=== PATIENT | female | born 1995 | race Caucasian/White ===

== ENCOUNTER 2018-09-22 20:19 | Emergency (ER) | payer SELFPAY ==
[~2018-09-22] VITALS: Ht 165.1 cm; Wt 74.8 kg
[~2018-09-22 20:19] MED LIST: AMPI250C11 PO; AZIT-21 PO; AZTH250C PO; CEFD300C3 PO; CIPR500T78 PO; FAMO20TA5 PO; HYDR-3730 PO; KETO10TA PO; METR500T PO; NAPR-243 PO; NITR-65 PO; NITR100C3 PO; PHEN-640 PO; SULF1TAB38 PO; TRM50T PO; birth control
--- OUTSIDE RECORDS SUMMARY | 2018-09-22 20:27 | XMS REPORT | Continuity of Care Document ---
Author Author [facility] Address Unknown Phone Unavailable Allergies Active Description Code Type Severity Reaction Onset Reported/Identified Relationship to Patient Clinical Status Yes amoxicillin Drug Allergy 09/30/2009 Yes amoxicillin Drug Allergy N/A N/A 09/30/2009 Yes amoxicillin [id number] Drug Allergy Moderate RASH 11/17/2013 Medications There is no data. Problems Date Dx Coded Attending Type Code Diagnosis Diagnosed By 11/21/2008 V70.3 Sports/school Exam 11/21/2008 V70.3 Sports/school Exam 11/21/2008 V70.3 Sports/school Exam 11/21/2008 V70.3 Sports/school Exam 11/21/2008 LAVELLE SYLVESTER PSYD V70.3 Sports/school Exam 11/21/2008 V70.3 Sports/school Exam 11/21/2008 V70.3 Sports/school Exam 11/21/2008 V70.3 Sports/school Exam 11/21/2008 V70.3 Sports/school Exam 11/21/2008 KYA LEPE DO V70.3 Sports/school Exam 11/21/2008 V70.3 Sports/school Exam 11/21/2008 TIM OLIVO APRNYL A V70.3 Sports/school Exam 11/21/2008 JADYN RENE APRN V70.3 Sports/school Exam 11/21/2008 PALLAVI BINGHAM RENE A V70.3 Sports/school Exam 11/21/2008 PALLAVI BINGHAM RENE A V70.3 Sports/school Exam 11/21/2008 PALLAVI BINGHAM RENE A V70.3 Sports/school Exam 11/21/2008 JOYCE MAYO APRN A V70.3 Sports/school Exam 05/03/2009 079.99 Viral Syndrome 05/03/2009 079.99 Viral Syndrome 05/03/2009 079.99 Viral Syndrome 05/03/2009 079.99 Viral Syndrome 05/03/2009 LAVELLE SYLVESTER PSYD L 079.99 Viral Syndrome 05/03/2009 079.99 Viral Syndrome 05/03/2009 079.99 Viral Syndrome 05/03/2009 079.99 Viral Syndrome 05/03/2009 079.99 Viral Syndrome 05/03/2009 KYA LEPE DO 079.99 Viral Syndrome 05/03/2009 079.99 Viral Syndrome 05/03/2009 PALLAVI TOOL LATHE OPERATOR, RENE A 079.99 Viral Syndrome 05/03/2009 JADYN RENE APRN 079.99 Viral Syndrome 05/03/2009 RAJOTTE TOOL LATHE OPERATOR, RENE A 079.99 Viral Syndrome 05/03/2009 BRIDGETOTTE TOOL LATHE OPERATOR, RENE A 079.99 Viral Syndrome 05/03/2009 RAJOTTE TOOL LATHE OPERATOR, RENE A 079.99 Viral Syndrome 05/03/2009 GAEL TOOL LATHE OPERATOR, JOYCE A 079.99 Viral Syndrome 12/24/2009 493.90 Asthma Unspecified 12/24/2009 625.3 DYSMENORRHEA 12/24/2009 626.4 IRREGULAR MENSTRUAL CYCLE 12/24/2009 V20.2 WELL CHILD, ROUTINE 12/24/2009 493.90 Asthma Unspecified 12/24/2009 625.3 DYSMENORRHEA 12/24/2009 626.4 IRREGULAR MENSTRUAL CYCLE 12/24/2009 V20.2 WELL CHILD, ROUTINE 12/24/2009 493.90 Asthma Unspecified 12/24/2009 625.3 DYSMENORRHEA 12/24/2009 626.4 IRREGULAR MENSTRUAL CYCLE 12/24/2009 V20.2 WELL CHILD, ROUTINE 12/24/2009 493.90 Asthma Unspecified 12/24/2009 625.3 DYSMENORRHEA 12/24/2009 626.4 IRREGULAR MENSTRUAL CYCLE 12/24/2009 V20.2 WELL CHILD, ROUTINE 12/24/2009 LAVELLE SYLVESTER PSYD L 493.90 Asthma Unspecified 12/24/2009 LAVELLE SYLVESTER PSYD L 625.3 DYSMENORRHEA 12/24/2009 LAVELLE SYLVESTER PSYD L 626.4 IRREGULAR MENSTRUAL CYCLE 12/24/2009 LAVELLE SYLVESTER PSYD L V20.2 WELL CHILD, ROUTINE 12/24/2009 493.90 Asthma Unspecified 12/24/2009 625.3 DYSMENORRHEA 12/24/2009 626.4 IRREGULAR MENSTRUAL CYCLE 12/24/2009 V20.2 WELL CHILD, ROUTINE 12/24/2009 493.90 Asthma Unspecified 12/24/2009 625.3 DYSMENORRHEA 12/24/2009 626.4 IRREGULAR MENSTRUAL CYCLE 12/24/2009 V20.2 WELL CHILD, ROUTINE 12/24/2009 493.90 Asthma Unspecified 12/24/2009 625.3 DYSMENORRHEA 12/24/2009 626.4 IRREGULAR MENSTRUAL CYCLE 12/24/2009 V20.2 WELL CHILD, ROUTINE 12/24/2009 493.90 Asthma Unspecified 12/24/2009 625.3 DYSMENORRHEA 12/24/2009 626.4 IRREGULAR MENSTRUAL CYCLE 12/24/2009 V20.2 WELL CHILD, ROUTINE 12/24/2009 LEPE DO, YKA K 493.90 Asthma Unspecified 12/24/2009 LEPE DO, KYA K 625.3 DYSMENORRHEA 12/24/2009 LEPE DO KYA K 626.4 IRREGULAR MENSTRUAL CYCLE 12/24/2009 LEPE DO, KYA K V20.2 WELL CHILD, ROUTINE 12/24/2009 493.90 Asthma Unspecified 12/24/2009 625.3 DYSMENORRHEA 12/24/2009 626.4 IRREGULAR MENSTRUAL CYCLE 12/24/2009 V20.2 WELL CHILD, ROUTINE 12/24/2009 RAJWAGNERE TOOL LATHE OPERATOR, RENE A 493.90 Asthma Unspecified 12/24/2009 RAJWAGNERE TOOL LATHE OPERATOR, RENE A 625.3 DYSMENORRHEA 12/24/2009 RAJWAGNERE TOOL LATHE OPERATOR, RENE A 626.4 IRREGULAR MENSTRUAL CYCLE 12/24/2009 RAJWAGNERE TOOL LATHE OPERATOR, RENE A V20.2 WELL CHILD, ROUTINE 12/24/2009 JADYN RENE APRN 493.90 Asthma Unspecified 12/24/2009 JADYN RENE APRN 625.3 DYSMENORRHEA 12/24/2009 JADYN RENE APRN 626.4 IRREGULAR MENSTRUAL CYCLE 12/24/2009 JADYN RENE APRN V20.2 WELL CHILD, ROUTINE 12/24/2009 RAJOTTE TOOL LATHE OPERATOR, RENE A 493.90 Asthma Unspecified 12/24/2009 RAJWAGNERE ZACHERY, RENE A 625.3 DYSMENORRHEA 12/24/2009 RAJOTTE TOOL LATHE OPERATOR, RENE A 626.4 IRREGULAR MENSTRUAL CYCLE 12/24/2009 RAJOTTE TOOL LATHE OPERATOR, RENE A V20.2 WELL CHILD, ROUTINE 12/24/2009 RAJOTTE TOOL LATHE OPERATOR, RENE A 493.90 Asthma Unspecified 12/24/2009 RAJOTTE TOOL LATHE OPERATOR, RENE A 625.3 DYSMENORRHEA 12/24/2009 RAJOTTE TOOL LATHE OPERATOR, RENE A 626.4 IRREGULAR MENSTRUAL CYCLE 12/24/2009 RAJOTTE TOOL LATHE OPERATOR, RENE A V20.2 WELL CHILD, ROUTINE 12/24/2009 RAJOTTE TOOL LATHE OPERATOR, RENE A 493.90 Asthma Unspecified 12/24/2009 RAJOTTE TOOL LATHE OPERATOR, RENE A 625.3 DYSMENORRHEA 12/24/2009 RAJOTTE TOOL LATHE OPERATOR, RENE A 626.4 IRREGULAR MENSTRUAL CYCLE 12/24/2009 RAJOTTE TOOL LATHE OPERATOR, RENE A V20.2 WELL CHILD, ROUTINE 12/24/2009 GAEL TOOL LATHE OPERATOR, JOYCE A 493.90 Asthma Unspecified 12/24/2009 GAEL TOOL LATHE OPERATOR, JOYCE A 625.3 DYSMENORRHEA 12/24/2009 GAEL TOOL LATHE OPERATOR, JOYCE A 626.4 IRREGULAR MENSTRUAL CYCLE 12/24/2009 GAEL TOOL LATHE OPERATOR, JOYCE A V20.2 WELL CHILD, ROUTINE 05/26/2010 477.0 ALLERGIC RHINITIS, DUE TO POLLEN 05/26/2010 477.0 ALLERGIC RHINITIS, DUE TO POLLEN 05/26/2010 477.0 ALLERGIC RHINITIS, DUE TO POLLEN 05/26/2010 477.0 ALLERGIC RHINITIS, DUE TO POLLEN 05/26/2010 LAVELLE SYLVESTER PSYD 477.0 ALLERGIC RHINITIS, DUE TO POLLEN 05/26/2010 477.0 ALLERGIC RHINITIS, DUE TO POLLEN 05/26/2010 477.0 ALLERGIC RHINITIS, DUE TO POLLEN 05/26/2010 477.0 ALLERGIC RHINITIS, DUE TO POLLEN 05/26/2010 477.0 ALLERGIC RHINITIS, DUE TO POLLEN 05/26/2010 KYA LEPE DO 477.0 ALLERGIC RHINITIS, DUE TO POLLEN 05/26/2010 477.0 ALLERGIC RHINITIS, DUE TO POLLEN 05/26/2010 RAJOTTE TOOL LATHE OPERATOR, RENE A 477.0 ALLERGIC RHINITIS, DUE TO POLLEN 05/26/2010 JADYN RENE APRN 477.0 ALLERGIC RHINITIS, DUE TO POLLEN 05/26/2010 RAJOTTE TOOL LATHE OPERATOR, RENE A 477.0 ALLERGIC RHINITIS, DUE TO POLLEN 05/26/2010 RAJOTTE TOOL LATHE OPERATOR, RENE A 477.0 ALLERGIC RHINITIS, DUE TO POLLEN 05/26/2010 RAJOTTE TOOL LATHE OPERATOR, RENE A 477.0 ALLERGIC RHINITIS, DUE TO POLLEN 05/26/2010 GAEL TOOL LATHE OPERATOR, JOYCE A 477.0 ALLERGIC RHINITIS, DUE TO POLLEN 10/27/2010 462 Pharyngitis Acute 10/27/2010 462 Pharyngitis Acute 10/27/2010 462 Pharyngitis Acute 10/27/2010 462 Pharyngitis Acute 10/27/2010 LAVELLE SYLVESTER PSYD 462 Pharyngitis Acute 10/27/2010 462 Pharyngitis Acute 10/27/2010 462 Pharyngitis Acute 10/27/2010 462 Pharyngitis Acute 10/27/2010 462 Pharyngitis Acute 10/27/2010 KYA LEPE DO 462 Pharyngitis Acute 10/27/2010 462 Pharyngitis Acute 10/27/2010 RAJOTTE TOOL LATHE OPERATOR, RENE A 462 Pharyngitis Acute 10/27/2010 JADYN RENE APRN 462 Pharyngitis Acute 10/27/2010 RAJOTTE TOOL LATHE OPERATOR, RENE A 462 Pharyngitis Acute 10/27/2010 RAJOTTE TOOL LATHE OPERATOR, RENE A 462 Pharyngitis Acute 10/27/2010 RAJOTTE TOOL LATHE OPERATOR, RENE A 462 Pharyngitis Acute 10/27/2010 GAEL TOOL LATHE OPERATOR, JOYCE A 462 Pharyngitis Acute 12/30/2010 V05.3 Hepatitis A Vaccine 12/30/2010 V05.8 Gardasil 12/30/2010 V05.3 Hepatitis A Vaccine 12/30/2010 V05.8 Gardasil 12/30/2010 V05.3 Hepatitis A Vaccine 12/30/2010 V05.8 Gardasil 12/30/2010 V05.3 Hepatitis A Vaccine 12/30/2010 V05.8 Gardasil 12/30/2010 LAVELLE SYLVESTER PSYD V05.3 Hepatitis A Vaccine 12/30/2010 LAVELLE SYLVESTER PSYD L V05.8 Gardasil 12/30/2010 V05.3 Hepatitis A Vaccine 12/30/2010 V05.8 Gardasil 12/30/2010 V05.3 Hepatitis A Vaccine 12/30/2010 V05.8 Gardasil 12/30/2010 V05.3 Hepatitis A Vaccine 12/30/2010 V05.8 Gardasil 12/30/2010 V05.3 Hepatitis A Vaccine 12/30/2010 V05.8 Gardasil 12/30/2010 LEPE DO, KYA K V05.3 Hepatitis A Vaccine 12/30/2010 LEPE DO, KYA K V05.8 Gardasil 12/30/2010 V05.3 Hepatitis A Vaccine 12/30/2010 V05.8 Gardasil 12/30/2010 TIM OLIVO APRNYL A V05.3 Hepatitis A Vaccine 12/30/2010 PALLAVI BINGHAM RENE A V05.8 Gardasil 12/30/2010 JADYN RENE APRN V05.3 Hepatitis A Vaccine 12/30/2010 JADYN RNEE APRN V05.8 Gardasil 12/30/2010 PALLAVI BINGHAM RENE A V05.3 Hepatitis A Vaccine 12/30/2010 PALLAVI BINGHAM RENE A V05.8 Gardasil 12/30/2010 PALLAVI BINGHAM RENE A V05.3 Hepatitis A Vaccine 12/30/2010 PALLAVI BINGHAM RENE A V05.8 Gardasil 12/30/2010 PALLAVI BINGHAM RENE A V05.3 Hepatitis A Vaccine 12/30/2010 PALLAVI BINGHAM RENE A V05.8 Gardasil 12/30/2010 GAEL BINGHAM JOYCE A V05.3 Hepatitis A Vaccine 12/30/2010 GAEL BINGHAM JOYCE A V05.8 Gardasil 01/15/2011 463 Tonsillitis Acute 01/15/2011 463 Tonsillitis Acute 01/15/2011 463 Tonsillitis Acute 01/15/2011 463 Tonsillitis Acute 01/15/2011 LAVELLE SYLVESTER PSYD L 463 Tonsillitis Acute 01/15/2011 463 Tonsillitis Acute 01/15/2011 463 Tonsillitis Acute 01/15/2011 463 Tonsillitis Acute 01/15/2011 463 Tonsillitis Acute 01/15/2011 KYA LEPE DO 463 Tonsillitis Acute 01/15/2011 463 Tonsillitis Acute 01/15/2011 TIM OLIVO APRNYL A 463 Tonsillitis Acute 01/15/2011 JADYN RENE APRN 463 Tonsillitis Acute 01/15/2011 TIM OLIVO APRNYL A 463 Tonsillitis Acute 01/15/2011 TIM OLIVO APRNYL A 463 Tonsillitis Acute 01/15/2011 TIM OLIVO APRNYL A 463 Tonsillitis Acute 01/15/2011 JOYCE MAYO APRN A 463 Tonsillitis Acute 01/21/2011 V25.01 CONTRACEPTION COUNSELING- ORAL CONTRACEPTION 01/21/2011 V25.01 CONTRACEPTION COUNSELING- ORAL CONTRACEPTION 01/21/2011 V25.01 CONTRACEPTION COUNSELING- ORAL CONTRACEPTION 01/21/2011 V25.01 CONTRACEPTION COUNSELING- ORAL CONTRACEPTION 01/21/2011 LAVELLE SYLVESTER PSYD V25.01 CONTRACEPTION COUNSELING- ORAL CONTRACEPTION 01/21/2011 V25.01 CONTRACEPTION COUNSELING- ORAL CONTRACEPTION 01/21/2011 V25.01 CONTRACEPTION COUNSELING- ORAL CONTRACEPTION 01/21/2011 V25.01 CONTRACEPTION COUNSELING- ORAL CONTRACEPTION 01/21/2011 V25.01 CONTRACEPTION COUNSELING- ORAL CONTRACEPTION 01/21/2011 KYA LEPE DO V25.01 CONTRACEPTION COUNSELING- ORAL CONTRACEPTION 01/21/2011 V25.01 CONTRACEPTION COUNSELING- ORAL CONTRACEPTION 01/21/2011 RENE OLIVO APRN A V25.01 CONTRACEPTION COUNSELING- ORAL CONTRACEPTION 01/21/2011 AJDYN RENE APRN V25.01 CONTRACEPTION COUNSELING- ORAL CONTRACEPTION 01/21/2011 RENE OLIVO APRN A V25.01 CONTRACEPTION COUNSELING- ORAL CONTRACEPTION 01/21/2011 RENE OLIVO APRN A V25.01 CONTRACEPTION COUNSELING- ORAL CONTRACEPTION 01/21/2011 TIM OLIVO APRNYL A V25.01 CONTRACEPTION COUNSELING- ORAL CONTRACEPTION 01/21/2011 JOYCE MAYO APRN V25.01 CONTRACEPTION COUNSELING- ORAL CONTRACEPTION 05/26/2011 787.02 Nausea Alone 05/26/2011 787.02 Nausea Alone 05/26/2011 787.02 Nausea Alone 05/26/2011 787.02 Nausea Alone 05/26/2011 LAVELLE SYLVESTER PSYD L 787.02 Nausea Alone 05/26/2011 787.02 Nausea Alone 05/26/2011 787.02 Nausea Alone 05/26/2011 787.02 Nausea Alone 05/26/2011 787.02 Nausea Alone 05/26/2011 SHERLEY CANALESKYA K 787.02 Nausea Alone 05/26/2011 787.02 Nausea Alone 05/26/2011 PALLAVI BINGHAM RENE A 787.02 Nausea Alone 05/26/2011 JADYN RENE APRN 787.02 Nausea Alone 05/26/2011 PALLAVI TOOL LATHE OPERATOR, RENE A 787.02 Nausea Alone 05/26/2011 PALLAVI TOOL LATHE OPERATOR, RENE A 787.02 Nausea Alone 05/26/2011 PALLAVI TOOL LATHE OPERATOR, RENE A 787.02 Nausea Alone 05/26/2011 GAEL BINGHAM JOYCE A 787.02 Nausea Alone 09/16/2011 757.39 Keratosis Pilaris 09/16/2011 786.52 Anterior Wall Chest Pain With Respiration 09/16/2011 757.39 Keratosis Pilaris 09/16/2011 786.52 Anterior Wall Chest Pain With Respiration 09/16/2011 757.39 Keratosis Pilaris 09/16/2011 786.52 Anterior Wall Chest Pain With Respiration 09/16/2011 757.39 Keratosis Pilaris 09/16/2011 786.52 Anterior Wall Chest Pain With Respiration 09/16/2011 LAVELLE SYLVESTER PSYD L 757.39 Keratosis Pilaris 09/16/2011 LAVELLE SYLVESTER PSYD L 786.52 Anterior Wall Chest Pain With Respiration 09/16/2011 757.39 Keratosis Pilaris 09/16/2011 786.52 Anterior Wall Chest Pain With Respiration 09/16/2011 757.39 Keratosis Pilaris 09/16/2011 786.52 Anterior Wall Chest Pain With Respiration 09/16/2011 757.39 Keratosis Pilaris 09/16/2011 786.52 Anterior Wall Chest Pain With Respiration 09/16/2011 757.39 Keratosis Pilaris 09/16/2011 786.52 Anterior Wall Chest Pain With Respiration 09/16/2011 KYA LEPE DO K 757.39 Keratosis Pilaris 09/16/2011 KYA LEPE DO K 786.52 Anterior Wall Chest Pain With Respiration 09/16/2011 757.39 Keratosis Pilaris 09/16/2011 786.52 Anterior Wall Chest Pain With Respiration 09/16/2011 RAJOTTE TOOL LATHE OPERATOR, RENE A 757.39 Keratosis Pilaris 09/16/2011 RAJOTTE TOOL LATHE OPERATOR, RENE A 786.52 Anterior Wall Chest Pain With Respiration 09/16/2011 ANJU MONTAGUEN JADYN T 757.39 Keratosis Pilaris 09/16/2011 ANJU TOOL LATHE OPERATOR, JADYN T 786.52 Anterior Wall Chest Pain With Respiration 09/16/2011 RAJOTTE TOOL LATHE OPERATOR, RENE A 757.39 Keratosis Pilaris 09/16/2011 RAJOTTE TOOL LATHE OPERATOR, RENE A 786.52 Anterior Wall Chest Pain With Respiration 09/16/2011 RAJOTTE TOOL LATHE OPERATOR, RENE A 757.39 Keratosis Pilaris 09/16/2011 RAJOTTE TOOL LATHE OPERATOR, RENE A 786.52 Anterior Wall Chest Pain With Respiration 09/16/2011 RAJOTTE TOOL LATHE OPERATOR, RENE A 757.39 Keratosis Pilaris 09/16/2011 RAJOTTE TOOL LATHE OPERATOR, RENE A 786.52 Anterior Wall Chest Pain With Respiration 09/16/2011 GAEL TOOL LATHE OPERATOR, JOYCE A 757.39 Keratosis Pilaris 09/16/2011 GAEL TOOL LATHE OPERATOR, JOYCE A 786.52 Anterior Wall Chest Pain With Respiration 12/07/2011 V04.89 Gardasil (hpv ) Dx 12/07/2011 V05.4 Varicella Dx 12/07/2011 V04.89 Gardasil (hpv ) Dx 12/07/2011 V05.4 Varicella Dx 12/07/2011 V04.89 Gardasil (hpv ) Dx 12/07/2011 V05.4 Varicella Dx 12/07/2011 V04.89 Gardasil (hpv ) Dx 12/07/2011 V05.4 Varicella Dx 12/07/2011 LAVELLE SYLVESTER PSYD V04.89 Gardasil (hpv) Dx 12/07/2011 LAVELLE SYLVESTER PSYD V05.4 Varicella Dx 12/07/2011 V04.89 Gardasil (hpv ) Dx 12/07/2011 V05.4 Varicella Dx 12/07/2011 V04.89 Gardasil (hpv ) Dx 12/07/2011 V05.4 Varicella Dx 12/07/2011 V04.89 Gardasil (hpv ) Dx 12/07/2011 V05.4 Varicella Dx 12/07/2011 V04.89 Gardasil (hpv ) Dx 12/07/2011 V05.4 Varicella Dx 12/07/2011 KYA LEPE DO V04.89 Gardasil (hpv) Dx 12/07/2011 LEPE DOKYA V05.4 Varicella Dx 12/07/2011 V04.89 Gardasil (hpv ) Dx 12/07/2011 V05.4 Varicella Dx 12/07/2011 RENE OLIVO APRN A V04.89 Gardasil (hpv) Dx 12/07/2011 RENE OLIVO APRN A V05.4 Varicella Dx 12/07/2011 JADYN RENE APRN V04.89 Gardasil (hpv) Dx 12/07/2011 JADYN RENE APRN V05.4 Varicella Dx 12/07/2011 RENE OLIVO APRN A V04.89 Gardasil (hpv) Dx 12/07/2011 TIM OLIVO APRNYL A V05.4 Varicella Dx 12/07/2011 TIM OLIVO APRNYL A V04.89 Gardasil (hpv) Dx 12/07/2011 TIM OLIVO APRNYL A V05.4 Varicella Dx 12/07/2011 RENE OLIVO APRN A V04.89 Gardasil (hpv) Dx 12/07/2011 RENE OLIVO APRN A V05.4 Varicella Dx 12/07/2011 JOYCE MAYO APRN V04.89 Gardasil (hpv) Dx 12/07/2011 JOYCE MAYO APRN A V05.4 Varicella Dx 01/11/2012 Ot 719.41 01/11/2012 Ot 840.8 01/11/2012 Ot E000.8 01/11/2012 Ot E029.9 01/11/2012 Ot E849.4 01/11/2012 Ot E927.0 01/21/2012 V25.02 Contraceptives 01/21/2012 V25.02 Contraceptives 01/21/2012 V25.02 Contraceptives 01/21/2012 V25.02 Contraceptives 01/21/2012 LAVELLE SYLVESTER PSYD V25.02 Contraceptives 01/21/2012 V25.02 Contraceptives 01/21/2012 V25.02 Contraceptives 01/21/2012 V25.02 Contraceptives 01/21/2012 V25.02 Contraceptives 01/21/2012 KYA LEPE DO V25.02 Contraceptives 01/21/2012 V25.02 Contraceptives 01/21/2012 PALLAVI BINGHAM RENE A V25.02 Contraceptives 01/21/2012 JADYN RENE APRN V25.02 Contraceptives 01/21/2012 PALLAVI BINGHAM RENE A V25.02 Contraceptives 01/21/2012 PALLAVI BINGHAM RENE A V25.02 Contraceptives 01/21/2012 PALLAVI BINGHAM RENE A V25.02 Contraceptives 01/21/2012 JOYCE MAYO APRN A V25.02 Contraceptives 2012 311 DEPRESSIVE DISORDER NOS 2012 311 DEPRESSIVE DISORDER NOS 2012 311 DEPRESSIVE DISORDER NOS 2012 311 DEPRESSIVE DISORDER NOS 2012 LAVELLE SYLVESTER PSYD 311 DEPRESSIVE DISORDER NOS 2012 311 DEPRESSIVE DISORDER NOS 2012 311 DEPRESSIVE DISORDER NOS 2012 311 DEPRESSIVE DISORDER NOS 2012 311 DEPRESSIVE DISORDER NOS 2012 KYA LEPE DO 311 DEPRESSIVE DISORDER NOS 2012 311 DEPRESSIVE DISORDER NOS 2012 PALLAVI BINGHAM RENE A 311 DEPRESSIVE DISORDER NOS 2012 JADYN RENE APRN 311 DEPRESSIVE DISORDER NOS 2012 PALLAVI BINGHAM RENE A 311 DEPRESSIVE DISORDER NOS 2012 PALLAVI BINGHAM RENE A 311 DEPRESSIVE DISORDER NOS 2012 PALLAVI BINGHAM RENE A 311 DEPRESSIVE DISORDER NOS 2012 JOYCE MAYO APRN A 311 DEPRESSIVE DISORDER NOS 06/21/2012 296.32 MO DEPRESSIVE RECURRENT MODERATE 06/21/2012 301.4 PD OBSESSIVE- COMPULSIVE 06/21/2012 296.32 MO DEPRESSIVE RECURRENT MODERATE 06/21/2012 301.4 PD OBSESSIVE- COMPULSIVE 06/21/2012 296.32 MO DEPRESSIVE RECURRENT MODERATE 06/21/2012 301.4 PD OBSESSIVE- COMPULSIVE 06/21/2012 296.32 MO DEPRESSIVE RECURRENT MODERATE 06/21/2012 301.4 PD OBSESSIVE- COMPULSIVE 06/21/2012 LAVELLE SYLVESTER PSYD 296.32 MO DEPRESSIVE RECURRENT MODERATE 06/21/2012 LAVELLE SYLVESTER PSYD 301.4 PD OBSESSIVE-COMPULSIVE 06/21/2012 296.32 MO DEPRESSIVE RECURRENT MODERATE 06/21/2012 301.4 PD OBSESSIVE- COMPULSIVE 06/21/2012 296.32 MO DEPRESSIVE RECURRENT MODERATE 06/21/2012 301.4 PD OBSESSIVE- COMPULSIVE 06/21/2012 296.32 MO DEPRESSIVE RECURRENT MODERATE 06/21/2012 301.4 PD OBSESSIVE- COMPULSIVE 06/21/2012 296.32 MO DEPRESSIVE RECURRENT MODERATE 06/21/2012 301.4 PD OBSESSIVE- COMPULSIVE 06/21/2012 LEPE DO, KYA K 296.32 MO DEPRESSIVE RECURRENT MODERATE 06/21/2012 LEPE DO, KYA K 301.4 PD OBSESSIVE-COMPULSIVE 06/21/2012 296.32 MO DEPRESSIVE RECURRENT MODERATE 06/21/2012 301.4 PD OBSESSIVE- COMPULSIVE 06/21/2012 AMANDAE TOOL LATHE OPERATOR, RENE A 296.32 MO DEPRESSIVE RECURRENT MODERATE 06/21/2012 RAJWAGNERE TOOL LATHE OPERATOR, RENE A 301.4 PD OBSESSIVE-COMPULSIVE 06/21/2012 JDAYN RENE APRN 296.32 MO DEPRESSIVE RECURRENT MODERATE 06/21/2012 JADYN RENE APRN 301.4 PD OBSESSIVE-COMPULSIVE 06/21/2012 RAJWAGNERE TOOL LATHE OPERATOR, RENE A 296.32 MO DEPRESSIVE RECURRENT MODERATE 06/21/2012 RAJWAGNERE TOOL LATHE OPERATOR, RENE A 301.4 PD OBSESSIVE-COMPULSIVE 06/21/2012 RAJOTTE TOOL LATHE OPERATOR, RENE A 296.32 MO DEPRESSIVE RECURRENT MODERATE 06/21/2012 RAJOTTE TOOL LATHE OPERATOR, RENE A 301.4 PD OBSESSIVE-COMPULSIVE 06/21/2012 RAJOTTE TOOL LATHE OPERATOR, RENE A 296.32 MO DEPRESSIVE RECURRENT MODERATE 06/21/2012 RAJWAGNERE TOOL LATHE OPERATOR, RENE A 301.4 PD OBSESSIVE-COMPULSIVE 06/21/2012 GAEL BINGHAM JOYCE A 296.32 MO DEPRESSIVE RECURRENT MODERATE 06/21/2012 GAEL BINGHAM JOYCE A 301.4 PD OBSESSIVE-COMPULSIVE 08/09/2012 V69.2 HIGH-RISK SEXUAL BEHAVIOR 08/09/2012 V69.2 HIGH-RISK SEXUAL BEHAVIOR 08/09/2012 V69.2 HIGH-RISK SEXUAL BEHAVIOR 08/09/2012 V69.2 HIGH-RISK SEXUAL BEHAVIOR 08/09/2012 LAVELLE SYLVESTER PSYD V69.2 HIGH-RISK SEXUAL BEHAVIOR 08/09/2012 V69.2 HIGH-RISK SEXUAL BEHAVIOR 08/09/2012 V69.2 HIGH-RISK SEXUAL BEHAVIOR 08/09/2012 V69.2 HIGH-RISK SEXUAL BEHAVIOR 08/09/2012 V69.2 HIGH-RISK SEXUAL BEHAVIOR 08/09/2012 SHERLEY CANALES KYA Yolis V69.2 HIGH-RISK SEXUAL BEHAVIOR 08/09/2012 V69.2 HIGH-RISK SEXUAL BEHAVIOR 08/09/2012 PALLAVI BINGHAM RENE A V69.2 HIGH-RISK SEXUAL BEHAVIOR 08/09/2012 JADYN RENE APRN V69.2 HIGH-RISK SEXUAL BEHAVIOR 08/09/2012 RAJMARCELINA TOOL LATHE OPERATOR, RENE A V69.2 HIGH-RISK SEXUAL BEHAVIOR 08/09/2012 PALLAVI BINGHAM, RENE A V69.2 HIGH-RISK SEXUAL BEHAVIOR 08/09/2012 PALLAVI TOOL LATHE OPERATOR, RENE A V69.2 HIGH-RISK SEXUAL BEHAVIOR 08/09/2012 GAEL BINGHAM JOYCE A V69.2 HIGH-RISK SEXUAL BEHAVIOR 09/09/2012 Ot 599.0 09/09/2012 Ot 780.60 10/04/2012 786.2 cough 10/04/2012 786.2 cough 10/04/2012 LAVELLE SYLVESTER PSYD 786.2 cough 10/04/2012 786.2 cough 10/04/2012 786.2 cough 10/04/2012 786.2 cough 10/04/2012 786.2 cough 10/04/2012 786.2 cough 10/04/2012 PALLAVI BINGHAM, RENE A 786.2 cough 10/04/2012 JADYN RENE APRN 786.2 cough 10/04/2012 RAJMARCELINA BINGHAM, RENE A 786.2 cough 10/04/2012 PALLAVI TOOL LATHE OPERATOR, RENE A 786.2 cough 10/04/2012 RAJWAGNERE TOOL LATHE OPERATOR, RENE A 786.2 cough 10/04/2012 GAELWALT BINGHAM, JOYCE A 786.2 COUGH 11/25/2012 LAVELLE SYLVESTER PSYD ANN L 788.1 DYSURIA 11/25/2012 LAVELLE SYLVESTER PSYD ANN L 788.41 URINARY FREQUENCY 11/25/2012 788.1 DYSURIA 11/25/2012 788.41 URINARY FREQUENCY 11/25/2012 788.1 DYSURIA 11/25/2012 788.41 URINARY FREQUENCY 11/25/2012 788.1 DYSURIA 11/25/2012 788.41 URINARY FREQUENCY 11/25/2012 788.1 DYSURIA 11/25/2012 788.41 URINARY FREQUENCY 11/25/2012 788.1 DYSURIA 11/25/2012 788.41 URINARY FREQUENCY 11/25/2012 AMANDAE TOOL LATHE OPERATOR, RENE A 788.1 DYSURIA 11/25/2012 PALLAVI BINGHAM, RENE A 788.41 URINARY FREQUENCY 11/25/2012 JADYN RENE APRN 788.1 DYSURIA 11/25/2012 JADYN RENE APRN 788.41 URINARY FREQUENCY 11/25/2012 AMANDAE TOOL LATHE OPERATOR, RENE A 788.1 DYSURIA 11/25/2012 RAJWAGNERE TOOL LATHE OPERATOR, RENE A 788.41 URINARY FREQUENCY 11/25/2012 RAJOTTE TOOL LATHE OPERATOR, RENE A 788.1 DYSURIA 11/25/2012 RAJOTTE TOOL LATHE OPERATOR, RENE A 788.41 URINARY FREQUENCY 11/25/2012 RAJOTTE TOOL LATHE OPERATOR, RENE A 788.1 DYSURIA 11/25/2012 RAJWAGNERE TOOL LATHE OPERATOR, RENE A 788.41 URINARY FREQUENCY 11/25/2012 GAEL APRN, JOYCE A 788.1 DYSURIA 11/25/2012 GAEL TOOL LATHE OPERATOR, JOYCE A 788.41 URINARY FREQUENCY 12/07/2012 V04.89 GARDASIL (HPV ) DX 12/07/2012 V04.89 GARDASIL (HPV ) DX 12/07/2012 V04.89 GARDASIL (HPV ) DX 12/07/2012 V04.89 GARDASIL (HPV ) DX 12/07/2012 V04.89 GARDASIL (HPV ) DX 12/07/2012 TIM OLIVO APRNYL A V04.89 GARDASIL (HPV) DX 12/07/2012 JADYN RENE APRN V04.89 GARDASIL (HPV) DX 12/07/2012 PALLAVI BINGHAM, RENE A V04.89 GARDASIL (HPV) DX 12/07/2012 AMANDAE TOOL LATHE OPERATOR, RENE A V04.89 GARDASIL (HPV) DX 12/07/2012 BRIDGETWAGNERE TOOL LATHE OPERATOR, RENE A V04.89 GARDASIL (HPV) DX 12/07/2012 GAEL BINGHAM, JOYCE A V04.89 GARDASIL (HPV) DX 12/10/2012 782.1 RASH AND OTHER NONSPECIFIC SKIN ERUPTION 12/10/2012 V70.0 EXAM - ROUTINE H&P 12/10/2012 782.1 RASH AND OTHER NONSPECIFIC SKIN ERUPTION 12/10/2012 V70.0 EXAM - ROUTINE H&P 12/10/2012 782.1 RASH AND OTHER NONSPECIFIC SKIN ERUPTION 12/10/2012 V70.0 EXAM - ROUTINE H&P 12/10/2012 782.1 RASH AND OTHER NONSPECIFIC SKIN ERUPTION 12/10/2012 V70.0 EXAM - ROUTINE H&P 12/10/2012 PALLAVI BINGHAM RENE A 782.1 RASH AND OTHER NONSPECIFIC SKIN ERUPTION 12/10/2012 PALLAVI BINGHAM, RENE A V70.0 EXAM - ROUTINE H&P 12/10/2012 JADYN RENE APRN 782.1 RASH AND OTHER NONSPECIFIC SKIN ERUPTION 12/10/2012 JADYN RENE APRN V70.0 EXAM - ROUTINE H&P 12/10/2012 PALLAVI TOOL LATHE OPERATOR, RENE A 782.1 RASH AND OTHER NONSPECIFIC SKIN ERUPTION 12/10/2012 PALLAVI BINGHAM, RENE A V70.0 EXAM - ROUTINE H&P 12/10/2012 PALLAVI TOOL LATHE OPERATOR, RENE A 782.1 RASH AND OTHER NONSPECIFIC SKIN ERUPTION 12/10/2012 AMANDAE TOOL LATHE OPERATOR, RENE A V70.0 EXAM - ROUTINE H&P 12/10/2012 PALLAVI TOOL LATHE OPERATOR, RENE A 782.1 RASH AND OTHER NONSPECIFIC SKIN ERUPTION 12/10/2012 PALLAVI TOOL LATHE OPERATOR, RENE A V70.0 EXAM - ROUTINE H&P 12/10/2012 GAEL BINGHAM JOYCE A 782.1 RASH AND OTHER NONSPECIFIC SKIN ERUPTION 12/10/2012 GAEL BINGHAM JOYCE A V70.0 EXAM - ROUTINE H&P 01/03/2013 SHANIA CARVAJAL Ot 599.0 01/03/2013 SHANIA CARVAJAL Ot 616.0 01/03/2013 SHANIA CARVAJAL Ot 789.00 01/16/2013 V13.02 PERSONAL HISTORY OF URINARY (TRACT) INFECTION 01/16/2013 V13.02 PERSONAL HISTORY OF URINARY (TRACT) INFECTION 01/16/2013 V13.02 PERSONAL HISTORY OF URINARY (TRACT) INFECTION 01/16/2013 RAJWAGNERE ZACHERY RENE A V13.02 PERSONAL HISTORY OF URINARY (TRACT) INFECTION 01/16/2013 JADYN RENE APRN V13.02 PERSONAL HISTORY OF URINARY (TRACT) INFECTION 01/16/2013 RAJWAGNERE TOOL LATHE OPERATOR, RENE A V13.02 PERSONAL HISTORY OF URINARY (TRACT) INFECTION 01/16/2013 RAJWAGNERE TOOL LATHE OPERATOR, RENE A V13.02 PERSONAL HISTORY OF URINARY (TRACT) INFECTION 01/16/2013 RAJWAGNERE TOOL LATHE OPERATOR, RENE A V13.02 PERSONAL HISTORY OF URINARY (TRACT) INFECTION 01/16/2013 GAEL BINGHAM JOYCE A V13.02 PERSONAL HISTORY OF URINARY (TRACT) INFECTION 02/17/2013 789.09 ABDOMINAL PAIN OTHER SPECIFIED SITE 02/17/2013 V74.5 STD SCREEN 02/17/2013 789.09 ABDOMINAL PAIN OTHER SPECIFIED SITE 02/17/2013 V74.5 STD SCREEN 02/17/2013 RAJOTTE TOOL LATHE OPERATOR, RENE A 789.09 ABDOMINAL PAIN OTHER SPECIFIED SITE 02/17/2013 RAJWAGNERE TOOL LATHE OPERATOR, RENE A V74.5 STD SCREEN 02/17/2013 JADYN RENE APRN 789.09 ABDOMINAL PAIN OTHER SPECIFIED SITE 02/17/2013 JADYN RENE APRN V74.5 STD SCREEN 02/17/2013 RAJOTTE TOOL LATHE OPERATOR, RENE A 789.09 ABDOMINAL PAIN OTHER SPECIFIED SITE 02/17/2013 RAJOTTE TOOL LATHE OPERATOR, RENE A V74.5 STD SCREEN 02/17/2013 RAJOTTE TOOL LATHE OPERATOR, RENE A 789.09 ABDOMINAL PAIN OTHER SPECIFIED SITE 02/17/2013 RAJOTTE TOOL LATHE OPERATOR, RENE A V74.5 STD SCREEN 02/17/2013 RAJOTTE TOOL LATHE OPERATOR, RENE A 789.09 ABDOMINAL PAIN OTHER SPECIFIED SITE 02/17/2013 RAJOTTE TOOL LATHE OPERATOR, RENE A V74.5 STD SCREEN 02/17/2013 GAEL TOOL LATHE OPERATOR, JOYCE A 789.09 ABDOMINAL PAIN OTHER SPECIFIED SITE 02/17/2013 GAEL TOOL LATHE OPERATOR, JOYCE A V74.5 STD SCREEN 03/28/2013 269.3 MINERAL DEFICIENCY NOT ELSEWHERE CLASSIFIED 03/28/2013 V03.89 MENINGOCOCCAL DX 03/28/2013 RAJOTTE TOOL LATHE OPERATOR, RENE A 269.3 MINERAL DEFICIENCY NOT ELSEWHERE CLASSIFIED 03/28/2013 RAJOTTE TOOL LATHE OPERATOR, RENE A V03.89 MENINGOCOCCAL DX 03/28/2013 JADYN RENE APRN 269.3 MINERAL DEFICIENCY NOT ELSEWHERE CLASSIFIED 03/28/2013 JADYN RENE APRN V03.89 MENINGOCOCCAL DX 03/28/2013 RAJOTTE TOOL LATHE OPERATOR, RENE A 269.3 MINERAL DEFICIENCY NOT ELSEWHERE CLASSIFIED 03/28/2013 RAJOTTE TOOL LATHE OPERATOR, RENE A V03.89 MENINGOCOCCAL DX 03/28/2013 RAJOTTE TOOL LATHE OPERATOR, RENE A 269.3 MINERAL DEFICIENCY NOT ELSEWHERE CLASSIFIED 03/28/2013 RAJOTTE TOOL LATHE OPERATOR, RENE A V03.89 MENINGOCOCCAL DX 03/28/2013 RAJOTTE TOOL LATHE OPERATOR, RENE A 269.3 MINERAL DEFICIENCY NOT ELSEWHERE CLASSIFIED 03/28/2013 RAJOTTE TOOL LATHE OPERATOR, RENE A V03.89 MENINGOCOCCAL DX 03/28/2013 GAEL TOOL LATHE OPERATOR, JOYCE A 269.3 MINERAL DEFICIENCY NOT ELSEWHERE CLASSIFIED 03/28/2013 GAEL APRN, JOYCE A V03.89 MENINGOCOCCAL DX 05/10/2013 465.9 UPPER RESPIRATORY INFECTION 05/10/2013 RAJOTTE TOOL LATHE OPERATOR, RENE A 465.9 UPPER RESPIRATORY INFECTION 05/10/2013 JADYN RENE APRN 465.9 UPPER RESPIRATORY INFECTION 05/10/2013 RAJOTTE TOOL LATHE OPERATOR, RENE A 465.9 UPPER RESPIRATORY INFECTION 05/10/2013 RAJOTTE TOOL LATHE OPERATOR, RENE A 465.9 UPPER RESPIRATORY INFECTION 05/10/2013 RAJOTTE TOOL LATHE OPERATOR, RENE A 465.9 UPPER RESPIRATORY INFECTION 05/10/2013 GAEL TOOL LATHE OPERATOR, JOYCE A 465.9 UPPER RESPIRATORY INFECTION 07/05/2013 RAJOTTE TOOL LATHE OPERATOR, RENE A 789.60 EPIGASTRIC PAIN 07/05/2013 RAJOTTE TOOL LATHE OPERATOR, RENE A V25.09 CONTRACEPTIVE COUNSELING - GENERAL 07/05/2013 RAJWAGNERE TOOL LATHE OPERATOR, RENE A V65.3 COUNSELING - DIETARY 07/05/2013 AMANDAE TOOL LATHE OPERATOR, RENE A V72.41 TEST NEGATIVE RESULT 07/05/2013 JADYN RENE APRN 789.60 EPIGASTRIC PAIN 07/05/2013 JADYN RENE APRN V25.09 CONTRACEPTIVE COUNSELING - GENERAL 07/05/2013 JADYN RENE APRN V65.3 COUNSELING - DIETARY 07/05/2013 JADYN RENE APRN V72.41 TEST NEGATIVE RESULT 07/05/2013 RAJMARCELINA MONTAGUEN, RENE A 789.60 EPIGASTRIC PAIN 07/05/2013 RAJWAGNERE TOOL LATHE OPERATOR, RENE A V25.09 CONTRACEPTIVE COUNSELING - GENERAL 07/05/2013 PALLAVI MONTAGUEN, RENE A V65.3 COUNSELING - DIETARY 07/05/2013 RAJMARCELINA TOOL LATHE OPERATOR, RENE A V72.41 TEST NEGATIVE RESULT 07/05/2013 AMANDAE TOOL LATHE OPERATOR, RENE A 789.60 EPIGASTRIC PAIN 07/05/2013 PALLAVI MONTAGUEN, RENE A V25.09 CONTRACEPTIVE COUNSELING - GENERAL 07/05/2013 RAJWAGNERE TOOL LATHE OPERATOR, RENE A V65.3 COUNSELING - DIETARY 07/05/2013 RAJWAGNERE TOOL LATHE OPERATOR, RENE A V72.41 TEST NEGATIVE RESULT 07/05/2013 PALLAVI MONTAGUEN, RENE A 789.60 EPIGASTRIC PAIN 07/05/2013 AMANDAE TOOL LATHE OPERATOR, RENE A V25.09 CONTRACEPTIVE COUNSELING - GENERAL 07/05/2013 AMANDAE TOOL LATHE OPERATOR, RENE A V65.3 COUNSELING - DIETARY 07/05/2013 AMANDAE TOOL LATHE OPERATOR, RENE A V72.41 TEST NEGATIVE RESULT 07/05/2013 GAEL TOOL LATHE OPERATOR, JOYCE A 789.60 EPIGASTRIC PAIN 07/05/2013 GAEL TOOL LATHE OPERATOR, OJYCE A V25.09 CONTRACEPTIVE COUNSELING - GENERAL 07/05/2013 GAEL TOOL LATHE OPERATOR, JOYCE A V65.3 COUNSELING - DIETARY 07/05/2013 GAEL APRN, JOYCE A V72.41 TEST NEGATIVE RESULT 10/07/2013 JADYN RENE APRN 008.8 GASTROENTERITIS, VIRAL 10/07/2013 RAJOTTE TOOL LATHE OPERATOR, RENE A 008.8 GASTROENTERITIS, VIRAL 10/07/2013 BRIDGETOTTE TOOL LATHE OPERATOR, RENE A 008.8 GASTROENTERITIS, VIRAL 10/07/2013 BRIDGETOTTE TOOL LATHE OPERATOR, RENE A 008.8 GASTROENTERITIS, VIRAL 10/07/2013 GAEL TOOL LATHE OPERATOR, JOYCE A 008.8 GASTROENTERITIS, VIRAL 11/03/2013 JADYN RENE APRN 462 PHARYNGITIS ACUTE 11/03/2013 RAJOTTE TOOL LATHE OPERATOR, RENE A 462 PHARYNGITIS ACUTE 11/03/2013 BRIDGETOTTE TOOL LATHE OPERATOR, RENE A 462 PHARYNGITIS ACUTE 11/03/2013 RAJOTTE TOOL LATHE OPERATOR, RENE A 462 PHARYNGITIS ACUTE 11/03/2013 GAEL TOOL LATHE OPERATOR, JOYCE A 462 PHARYNGITIS ACUTE 11/15/2013 AMANDAE TOOL LATHE OPERATOR, RENE A 079.99 VIRAL SYNDROME 11/15/2013 AMANDAE TOOL LATHE OPERATOR, RENE A 079.99 VIRAL SYNDROME 11/15/2013 AMANDAE TOOL LATHE OPERATOR, RENE A 079.99 VIRAL SYNDROME 11/15/2013 GAEL MONTAGUEN, JOYCE A 079.99 VIRAL SYNDROME 11/17/2013 CAMACHO BUCKNER, EDVIN Julien Ot 486 11/17/2013 CAMACHO BUCKNER, EDVIN A Ot 780.60 01/04/2014 PALLAVI MONTAGUEN, RENE A 381.81 DYSFUNCTION OF EUSTACHIAN TUBE 01/04/2014 PALLAVI MONTAGUEN, RENE A 461.9 SINUSITIS ACUTE 01/04/2014 PALLAVI MONTAGUEN, RENE A 477.9 ALLERGIC RHINITIS CAUSE UNSPECIFIED 01/04/2014 GAEL MONTAGUEN, JOYCE A 381.81 DYSFUNCTION OF EUSTACHIAN TUBE 01/04/2014 GAEL MONTAGUEN, JOYCE A 461.9 SINUSITIS ACUTE 01/04/2014 GAEL MONTAGUEN, JOYCE A 477.9 ALLERGIC RHINITIS CAUSE UNSPECIFIED 06/10/2014 JADYN CELIS DO Ot 599.0 06/10/2014 JADYN CELIS DO Ot 789.00 08/09/2014 Ot 787.02 08/09/2014 Ot 787.02 08/10/2014 Ot 787.02 08/10/2014 HILARY MUNSON MD Ot 493.90 08/10/2014 HILARY MUNSON MD Ot 540.9 08/10/2014 JEIMY BUCKNER, HILARY Ot V03.82 08/10/2014 HILARY MUNSON MD Ot V04.81 09/30/2014 Ot 787.02 09/30/2014 YANI CRUZ MD Ot 569.3 09/30/2014 YANI CRUZ MD Ot 626.8 09/30/2014 YANI CRUZ MD, Ot 789.00 10/12/2014 Ot 787.02 09/21/2015 JOSHUA CANALES JAGDISH Yolis Ot N39.0 URINARY TRACT INFECTION, SITE NOT SPECIF 09/23/2015 YANI CRUZ MD Ot R11.2 NAUSEA WITH VOMITING, UNSPECIFIED 09/23/2015 YANI CRUZ MD, Ot R19.7 DIARRHEA, UNSPECIFIED 07/20/2016 JADYN CELIS DO Ot N39.0 URINARY TRACT INFECTION, SITE NOT SPECIF 07/20/2016 JADYN CELIS DO Ot R10.30 LOWER ABDOMINAL PAIN, UNSPECIFIED 07/20/2016 JADYN CELIS DO Ot R30.0 DYSURIA 07/21/2016 JADYN CELIS DO Ot N39.0 URINARY TRACT INFECTION, SITE NOT SPECIF 07/21/2016 JADYN CELIS DO Ot R10.30 LOWER ABDOMINAL PAIN, UNSPECIFIED 07/21/2016 JADYN CELIS DO Ot R30.0 DYSURIA 07/28/2016 SHANIA CARVAJAL Ot K59.00 CONSTIPATION, UNSPECIFIED 07/28/2016 SHANIA CARVAJAL Ot R10.13 EPIGASTRIC PAIN 07/28/2016 SHANIA CARVAJAL Ot R10.84 GENERALIZED ABDOMINAL PAIN 07/28/2016 SHANIA CARVAJAL Ot R11.0 NAUSEA Procedures Code [place] [address] INDIV PSYTX 45/50 MIN 08/03/2012 61825 PSYTX PT&/FAMILY 45 MINUTES 09/07/2012 64385 PSYTX PT&/FAMILY 45 MINUTES 10/12/2012 55037 UA W/ CULTURE IF INDICATED 11/25/2012 46853 CULTURE URINE 11/25/2012 69324 PSYTX PT&/FAMILY 45 MINUTES 11/29/2012 14579 UA W/ CULTURE IF INDICATED 02/17/2013 00981 URINE TEST (IN- HOUSE) 02/17/2013 89613 TRICHOMONAS (IN-HOUSE) 02/17/2013 45677 CULTURE URINE 02/19/2013 97261 CULTURE UROGENITAL 02/20/2013 60148 GC/CHLAM PROBE (STATE) 02/20/2013 06476 URINE TEST (IN- HOUSE) 07/05/2013 72503 STREP A (IN-HOUSE) 11/03/2013 06396 STREP A (IN-HOUSE) 11/15/2013 17214 GC/CHLAM URINE ([facility]) 04/10/2014 20322 TEST, URINE (IN- HOUSE) 04/10/2014 Results Test Result Range CBC With Differential/Platelet - 06/09/16 10:46 WBC 5.6 x10E3/uL 3.4-10.8 RBC 4.08 x10E6/uL 3.77-5.28 Hemoglobin 11.8 g/dL 11.1-15.9 Hematocrit 36.3 % 34.0-46.6 MCV 89 fL 79-97 MCH 28.9 pg 26.6-33.0 MCHC 32.5 g/dL 31.5-35.7 RDW 12.9 % 12.3-15.4 Platelets 350 x10E3/uL 150-379 Neutrophils 56 % Lymphs 33 % Monocytes 8 % Eos 2 % Basos 1 % Neutrophils (Absolute) 3.1 x10E3/uL 1.4-7.0 Lymphs (Absolute) 1.9 x10E3/uL 0.7-3.1 Monocytes(Absolute) 0.5 x10E3/uL 0.1-0.9 Eos (Absolute) 0.1 x10E3/uL 0.0-0.4 Baso (Absolute) 0.1 x10E3/uL 0.0-0.2 Immature Granulocytes 0 % Immature Grans (Abs) 0.0 x10E3/uL 0.0-0.1 Comp. Metabolic Panel (14) - 06/09/16 10:46 Glucose, Serum 94 mg/dL 65-99 BUN 8 mg/dL 6-20 Creatinine, Serum 0.71 mg/dL 0.57-1.00 eGFR If NonAfricn Am 123 mL/min/1.73 >59 eGFR If Africn Am 142 mL/min/1.73 >59 BUN/Creatinine Ratio 11 8-20 Sodium, Serum 141 mmol/L 134-144 Potassium, Serum 4.4 mmol/L 3.5-5.2 Chloride, Serum 102 mmol/L 97-108 Carbon Dioxide, Total 26 mmol/L 18-29 Calcium, Serum 9.4 mg/dL 8.7-10.2 Protein, Total, Serum 7.3 g/dL 6.0-8.5 Albumin, Serum 4.4 g/dL 3.5-5.5 Globulin, Total 2.9 g/dL 1.5-4.5 A/G Ratio 1.5 1.1-2.5 Bilirubin, Total 0.3 mg/dL 0.0-1.2 Alkaline Phosphatase, S 78 IU/L 39-117 AST (SGOT) 17 IU/L 0-40 ALT (SGPT) 12 IU/L 0-32 Lipid Panel - 06/09/16 10:46 Cholesterol, Total 193 mg/dL 100-199 Triglycerides 76 mg/dL 0-149 HDL Cholesterol 48 mg/dL >39 VLDL Cholesterol Melvin 15 mg/dL 5-40 LDL Cholesterol Calc 130 mg/dL 0-99 TSH - 06/09/16 10:46 TSH 1.290 uIU/mL 0.450-4.500 Insulin - 06/09/16 10:46 Insulin 15.1 uIU/mL 2.6-24.9 Urine beta human chorionic gonadotropin (hCG) measurement - 07/20/16 10:15 Urine beta human chorionic gonadotropin (hCG) measurement NEGATIVE NEGATIVE Complete urinalysis with reflex to culture - 07/20/16 10:15 Urine color determination OTHER NRG Urine clarity determination CLEAR NRG Urine pH measurement by test strip 7 5-9 Specific gravity of urine by test strip 1.005 1.016- 1.022 Urine protein assay by test strip, semi-quantitative NEGATIVE NEGATIVE Urine glucose detection by automated test strip NEGATIVE NEGATIVE Erythrocytes detection in urine sediment by light microscopy 5+ NEGATIVE Urine ketones detection by automated test strip NEGATIVE NEGATIVE Urine nitrite detection by test strip NEGATIVE NEGATIVE Urine total bilirubin detection by test strip NEGATIVE NEGATIVE Urine urobilinogen measurement by automated test strip (mass/volume) NORMAL NORMAL Urine leukocyte esterase detection by dipstick 3+ NEGATIVE Automated urine sediment erythrocyte count by microscopy (number/high power field) [HPF] NR Automated urine sediment leukocyte count by microscopy (number/high power field ) [HPF] NRG Bacteria detection in urine sediment by light microscopy TRACE NRG Squamous epithelial cells detection in urine sediment by light microscopy 0-2 NRG Crystals detection in urine sediment by light microscopy NONE NRG Casts detection in urine sediment by light microscopy NONE NRG Mucus detection in urine sediment by light microscopy NEGATIVE NRG Complete urinalysis with reflex to culture YES NRG Bacterial urine culture - 07/20/16 10:15 Bacterial urine culture NG NRG Chlamydia DNA amp probe, urine - 07/20/16 10:15 Chlamydia DNA amp probe, urine Negative Negative Urine Neisseria gonorrhoeae DNA assay - 07/20/16 10:15 Gonorrhea amp DNA-urine Negative Negative Complete urinalysis with reflex to culture - 07/28/16 21:10 Urine color determination YELLOW NRG Urine clarity determination CLEAR NRG Urine pH measurement by test strip 6.5 5-9 Specific gravity of urine by test strip 1.005 1.016- 1.022 Urine protein assay by test strip, semi-quantitative NEGATIVE NEGATIVE Urine glucose detection by automated test strip NEGATIVE NEGATIVE Erythrocytes detection in urine sediment by light microscopy NEGATIVE NEGATIVE Urine ketones detection by automated test strip NEGATIVE NEGATIVE Urine nitrite detection by test strip NEGATIVE NEGATIVE Urine total bilirubin detection by test strip NEGATIVE NEGATIVE Urine urobilinogen measurement by automated test strip (mass/volume) NORMAL NORMAL Urine leukocyte esterase detection by dipstick NEGATIVE NEGATIVE Automated urine sediment erythrocyte count by microscopy (number/high power field) NONE NRG Automated urine sediment leukocyte count by microscopy (number/high power field ) [HPF] NRG Bacteria detection in urine sediment by light microscopy NEGATIVE NRG Squamous epithelial cells detection in urine sediment by light microscopy 2-5 NRG Crystals detection in urine sediment by light microscopy NONE NRG Casts detection in urine sediment by light microscopy NONE NRG Mucus detection in urine sediment by light microscopy NEGATIVE NRG Complete urinalysis with reflex to culture NO NRG Complete blood count (CBC) with automated white blood cell (WBC) differential - 07/28/16 21:54 Blood leukocytes automated count (number/volume) 9.7 10*3/uL 4.3-11.0 Blood erythrocytes automated count (number/volume) 4.28 10*6/uL 4.35-5.85 Venous blood hemoglobin measurement (mass/volume) 12.3 g/dL 11.5-16.0 Blood hematocrit (volume fraction) 38 % 35-52 Automated erythrocyte mean corpuscular volume 88 [foz_us] 80-99 Automated erythrocyte mean corpuscular hemoglobin (mass per erythrocyte) 29 pg 25-34 Automated erythrocyte mean corpuscular hemoglobin concentration measurement ( mass/volume) 33 g/dL 32-36 Automated erythrocyte distribution width ratio 12.3 % 10.0-14.5 Automated blood platelet count (count/volume) 290 10*3/uL 130-400 Automated blood platelet mean volume measurement 9.6 [foz_us] 7.4-10.4 Automated blood neutrophils/100 leukocytes 64 % 42-75 Automated blood lymphocytes/100 leukocytes 23 % 12-44 Blood monocytes/100 leukocytes 10 % 0-12 Automated blood eosinophils/100 leukocytes 2 % 0-10 Automated blood basophils/100 leukocytes 0 % 0-10 Blood neutrophils automated count (number/volume) 6.2 10*3 1.8-7.8 Blood lymphocytes automated count (number/volume) 2.2 10*3 1.0-4.0 Blood monocytes automated count (number/volume) 1.0 10*3 0.0-1.0 Automated eosinophil count 0.2 10*3/uL 0.0-0.3 Automated blood basophil count (count/volume) 0.0 10*3/uL 0.0-0.1 Comprehensive metabolic panel - 07/28/16 21:54 Serum or plasma sodium measurement (moles/volume) 139 mmol/L 135-145 Serum or plasma potassium measurement (moles/volume) 3.7 mmol/L 3.6-5.0 Serum or plasma chloride measurement (moles/volume) 106 mmol/L 98-107 Carbon dioxide 23 mmol/L 21-32 Serum or plasma anion gap determination (moles/volume) 10 mmol/L 5-14 Serum or plasma urea nitrogen measurement (mass/volume) 9 mg/dL 7-18 Serum or plasma creatinine measurement (mass/volume) 0.78 mg/dL 0.60-1.30 Serum or plasma urea nitrogen/creatinine mass ratio 12 NRG Serum or plasma creatinine measurement with calculation of estimated glomerular filtration rate > NRG Serum or plasma glucose measurement (mass/volume) 88 mg/dL 70-105 Serum or plasma calcium measurement (mass/volume) 9.3 mg/dL 8.5-10.1 Serum or plasma total bilirubin measurement (mass/volume) 0.2 mg/dL 0.1-1.0 Serum or plasma alkaline phosphatase measurement (enzymatic activity/volume) 82 U/L 40-136 Serum or plasma aspartate aminotransferase measurement (enzymatic activity/ volume) 23 U/L 5-34 Serum or plasma alanine aminotransferase measurement (enzymatic activity/volume ) 29 U/L 0-55 Serum or plasma protein measurement (mass/volume) 7.2 g/dL 6.4-8.2 Serum or plasma albumin measurement (mass/volume) 4.3 g/dL 3.2-4.5 Lipase - 07/28/16 21:54 Lipase 62 U/L 8-78 Serum or plasma C reactive protein measurement (mass/volume) - 07/28/16 21:54 Serum or plasma C reactive protein measurement (mass/volume) 0.45 mg /dL 0.00-0.50 CBC With Differential/Platelet - 08/20/16 17:14 WBC 7.7 x10E3/uL 3.4-10.8 RBC 4.91 x10E6/uL 3.77-5.28 Hemoglobin 14.1 g/dL 11.1-15.9 Hematocrit 42.4 % 34.0-46.6 MCV 86 fL 79-97 MCH 28.7 pg 26.6-33.0 MCHC 33.3 g/dL 31.5-35.7 RDW 13.2 % 12.3-15.4 Platelets 364 x10E3/uL 150-379 Neutrophils 65 % Lymphs 26 % Monocytes 8 % Eos 1 % Basos 0 % Neutrophils (Absolute) 4.9 x10E3/uL 1.4-7.0 Lymphs (Absolute) 2.0 x10E3/uL 0.7-3.1 Monocytes(Absolute) 0.6 x10E3/uL 0.1-0.9 Eos (Absolute) 0.1 x10E3/uL 0.0-0.4 Baso (Absolute) 0.0 x10E3/uL 0.0-0.2 Immature Granulocytes 0 % Immature Grans (Abs) 0.0 x10E3/uL 0.0-0.1 Comp. Metabolic Panel (14) - 08/20/16 17:14 Glucose, Serum 77 mg/dL 65-99 BUN 7 mg/dL 6-20 Creatinine, Serum 0.75 mg/dL 0.57-1.00 eGFR If NonAfricn Am 114 mL/min/1.73 >59 eGFR If Africn Am 132 mL/min/1.73 >59 BUN/Creatinine Ratio 9 8-20 Sodium, Serum 140 mmol/L 134-144 Potassium, Serum 3.9 mmol/L 3.5-5.2 Chloride, Serum 97 mmol/L 96-106 Carbon Dioxide, Total 25 mmol/L 18-29 Calcium, Serum 9.9 mg/dL 8.7-10.2 Protein, Total, Serum 8.2 g/dL 6.0-8.5 Albumin, Serum 4.8 g/dL 3.5-5.5 Globulin, Total 3.4 g/dL 1.5-4.5 A/G Ratio 1.4 1.1-2.5 Bilirubin, Total <0.2 mg/dL 0.0-1.2 Alkaline Phosphatase, S 92 IU/L 39-117 AST (SGOT) 18 IU/L 0-40 ALT (SGPT) 14 IU/L 0-32 TSH - 08/20/16 17:14 TSH 1.330 uIU/mL 0.450-4.500 Encounters ACCT No. Visit Date/Time Discharge Status Pt. Type Provider Facility Loc./Unit Complaint [id number] 04/10/2014 13:41:00 04/10/2014 23:59:59 CLS Outpatient GAEL JOYCE [facility] [id number] 01/04/2014 11:47:00 01/04/2014 23:59:59 CLS Outpatient AMANDAJessica RENE [facility] [id number] 11/15/2013 08:56:00 11/15/2013 23:59:59 CLS Outpatient RENE OLIVO APRN [id number] 11/15/2013 08:56:00 11/15/2013 23:59:59 CLS Outpatient RENE OLIVO APRN [id number] 11/03/2013 16:48:00 11/03/2013 23:59:59 CLS Outpatient JADYN RENE APRN [id number] 07/05/2013 08:44:00 07/05/2013 23:59:59 CLS Outpatient RENE OLIVO APRN [id number] 12/07/2012 15:34:00 12/07/2012 23:59:59 CLS Outpatient [id number] 11/25/2012 14:08:00 11/25/2012 23:59:59 CLS Outpatient LAVELLE SYLVESTER PSYD [id number] 10/12/2012 17:40:00 10/12/2012 23:59:59 CLS Outpatient [id number] 10/04/2012 14:16:00 10/04/2012 23:59:59 CLS Outpatient [id number] 09/07/2012 15:55:00 09/07/2012 23:59:59 CLS Outpatient [id number] 08/09/2012 14:19:00 08/09/2012 23:59:59 CLS Outpatient [id number] 08/03/2012 14:30:00 08/03/2012 23:59:59 CLS Outpatient KYA LEPE DO [id number] 05/10/2013 11:47:00 Document Registration [id number] 02/17/2013 10:46:00 Document Registration [id number] 01/16/2013 15:36:00 Document Registration [id number] 11/25/2012 13:41:00 Document Registration [id number] 08/21/2016 08:36:00 Document Registration [email or web address] 10/12/2014 15:55:46 ACT Document Registration [id number] 07/28/2016 21:05:00 07/28/2016 23:27:00 DIS Emergency SHANIA CARVAJAL [facility] ER BACK/STOMACH PAIN/ NAUSEA/DIFF URINATING [id number] 07/20/2016 10:10:00 07/20/2016 11:18:00 DIS Emergency JADYN CELIS DO [facility] ER ABD PAIN UNABLE TO URINATE [id number] 09/22/2015 22:07:00 09/23/2015 01:54:00 DIS Emergency YANI CRUZ MD [facility] ER VOMITTING,DIARRHEA [id number] 09/20/2015 22:54:00 09/21/2015 00:56:00 DIS Emergency JAGDISH LEWIS DO [facility] ER ABD PAIN [id number] 09/30/2014 19:11:00 09/30/2014 21:37:00 DIS Emergency YANI CRUZ MD [facility] ER [id number] 08/09/2014 09:40:00 08/10/2014 15:45:00 DIS Inpatient KIDO MD, TAKAAKI [facility] SURGICAL [id number] 06/10/2014 19:56:00 06/10/2014 21:30:00 DIS Emergency JADYN CELIS DO [facility] ER [id number] 11/17/2013 04:32:00 11/17/2013 05:54:00 DIS Emergency EDVIN SAUER MD [facility] ER [id number] 01/03/2013 18:13:00 01/03/2013 21:34:00 DIS Emergency SHANIA CARVAJAL [facility] ER [id number] 09/22/2018 20:21:00 ACT Emergency SONG JUGDE [facility] ER R WRIST PAIN [id number] 09/09/2012 20:49:00 Document Registration [id number] 01/11/2012 19:59:00 Document Registration [id number] 05/30/2011 10:31:00 Document Registration [id number] 06/10/2016 13:06:00 Document Registration
[2018-09-22] MEDS ORDERED: ACETAMINOPHEN 500 MG TAB (TYLENOL) PO ONE (20:30)
[2018-09-22] MEDS ORDERED: IBUPROFEN 800 MG (MOTRIN) TAB PO ONE (20:30)
--- NOTE | 2018-09-22 20:47 | ED Upper Extremity ---
General Chief Complaint: Upper Extremity Stated Complaint: R WRIST PAIN Nursing Triage Note: FALL RIGHT WRIST PAIN, LEFT KNEE ABRASION. Nursing Sepsis Screen: No Definite Risk Source: patient Exam Limitations: no limitations History of Present Illness Date Seen by Provider: Sep 22, 2018 Time Seen by Provider: 20:44 Initial Comments 23-year-old female who presents to the emergency room with complaints of right wrist pain after falling off a step. She has an abrasion to the left knee but denies pain to the knee. She denies other injuries from the fall. She reports that when she fell she smacked her wrist on another step causing the pain. Denies hitting her head or loss of consciousness. Onset: just prior to arrival Pain/Injury Location: right wrist Method of Injury: fell Modifying Factors: Improves With Movement Allergies and Home Medications Allergies Coded Allergies: amoxicillin (Verified Allergy, Intermediate, RASH, 11/17/13) Home Medications Hydrocodone Bit/Acetaminophen 1 Tab Tab, 1 EACH PO Q6H PRN for PAIN-MODERATE Prescribed by: SONG JUDGE on 09/22/182056 Patient Home Medication List Home Medication List Reviewed: Yes Review of Systems Constitutional: no symptoms reported, see HPI Musculoskeletal: see HPI, joint pain (right wrist pain) All Other Systems Reviewed Negative Unless Noted: Yes Past Ydtirnh-Cvqcjq-Izwzfy Hx Past Med/Social Hx: Reviewed Nursing Past Med/Soc Hx Patient Social History Alcohol Use: Denies Use Recreational Drug Use: No Smoking Status: Never a Smoker Recent Foreign Travel: No Contact w/Someone Who Travel: No Recent Infectious Disease Expo: No Recent Hopitalizations: No Immunizations Up To Date Tetanus Booster (TDap): Less than 5yrs Date of Influenza Vaccine: Sep 06, 2014 Seasonal Allergies Seasonal Allergies: No Past Medical History Surgeries: Yes Appendectomy Respiratory: Yes (EXERCISE-INDUCED ASTHMA) Asthma Cardiac: No Neurological: No : No (UNSURE) Last Menstrual Period: Aug 06, 2018 Reproductive Disorders: No Female Reproductive Disorders: Denies Sexually Transmitted Disease: No HIV/AIDS: No Genitourinary: No Gastrointestinal: No Musculoskeletal: No Endocrine: No HEENT: No Cancer: No Psychosocial: No Integumentary: No Blood Disorders: No Family Medical History Reviewed Nursing Family Hx No Pertinent Family Hx Physical Exam Vital Signs Vital Signs - First Documented 09/22/18 20:22 Temp 97.1 Pulse 100 Resp 26 B/P (MAP) 126/76 (93) Pulse Ox 99 O2 Delivery Room Air Capillary Refill : Less Than 3 Seconds Height, Weight, BMI Height: 5'5.00" Weight: 165lbs. 0oz. [id number]; 25.46 BMI Method:Stated General Appearance: WD/WN, no apparent distress Cardiovascular: normal peripheral pulses, regular rate, rhythm, no edema, no gallop, no JVD, no murmur Respiratory: chest non-tender, lungs clear, normal breath sounds, no respiratory distress, no accessory muscle use Wrist: Yes normal inspection, Yes no evidence of injury, Yes normal ROM, Yes pain, Yes soft tissue tenderness Neurologic/Psychiatric: alert, normal mood/affect, oriented x 3 Skin: normal color, warm/dry, other (abrasion to the left knee. Denies pain.) Progress/Results/Core Measures Results/Orders My Orders Orders - SONG JUDGE Wrist, Right, 3 Views Or More (09/22/18 20:25) Acetaminophen Tablet (Tylenol Tablet) (09/22/18 20:30) Ibuprofen Tablet (Motrin Tablet) (09/22/18 20:30) Medications Given in ED Current Medications Medications Dose Ordered Sig/Sharon Route Start Time Stop Time Status Last Admin Dose Admin Acetaminophen 1,000 mg ONCE ONCE PO 09/22/18 20:30 09/22/18 20:31 DC 09/22/18 20:34 1,000 MG Ibuprofen 800 mg ONCE ONCE PO 09/22/18 20:30 09/22/18 20:31 DC 09/22/18 20:33 800 MG Vital Signs/I&O 09/22/18 09/22/18 09/22/18 20:22 20:33 20:34 Temp 97.1 97.1 97.1 Pulse 100 Resp 26 B/P (MAP) 126/76 (93) Pulse Ox 99 O2 Delivery Room Air Blood Pressure Mean: 93 Progress Progress Note : Time: 20:46 Progress Note I have seen and evaluated the patient. I've informed her of her imaging studies and she was placed in a wrist splint. Ice was applied on arrival to the emergency room. She agrees with plan of care, plans for discharge, return precautions were given. Diagnostic Imaging Diagonstic Imaging: Xray Plain Films/CT/US/NM/MRI: other (wrist) Comments [facility]. [place], [place] NAME: SHAVON STRATTON [facility] REC#: [id number] PT STATUS: REG ER : 1995 PHYSICIAN: SONG JUDGE ADMIT DATE: 09/22/18/ER Draft Date of Exam:09/22/18 WRIST, RIGHT, 3 VIEWS OR MORE EXAM: WRIST, RIGHT, 3 VIEWS OR MORE INDICATION: Fall on outstretched hand. COMPARISON: Right hand radiographs 03/31/2007. FINDINGS: Subtle linear lucency involving the medial and anterior cortex of the distal right radial metaphysis consistent with a nondisplaced fracture. No other fractures. Soft tissue shadows are unremarkable. IMPRESSION: Nondisplaced fracture involving the distal right radial metaphysis. Dictated on workstation # [id number] Dict: 09/22/182043 Trans: 09/22/182048 CLAUDIA [id number] Interpreted by: EMI SHEPPARD MD Electronically signed by: Reviewed: Reviewed by Me Departure Impression Primary Impression: Fracture of radius Qualified Codes: S52.501A - Unspecified fracture of the lower end of right radius, initial encounter for closed fracture Disposition: HOME, SELF-CARE Condition: Stable/Unchanged Departure-Patient Inst. Decision time for Depature: 20:47 Referrals: [facility] [place] (PCP/Family) Primary Care Physician LARRY METZGER MICHAEL P MD Patient Instructions: Wrist Fracture (DC) Add. Discharge Instructions: Take medications as directed. Wear the splint at all times until you follow up with an orthopedic surgeon. Ice to the sore areas at 20 minute intervals. Ibuprofen and Tylenol as directed by the bottle for pain relief. Follow-up with orthopedic surgeon of your choosing within 1 week for a follow-up appointment. Follow-up with your doctor as needed. Return back to the emergency room for worsening symptoms or concerns as needed. All discharge instructions reviewed with patient and/or family. Voiced understanding. Scripts Hydrocodone Bit/Acetaminophen (Hydrocodone/Acetaminophen 5/325mg Tablet) 1 Tab Tab 1 EACH PO Q6H PRN for PAIN-MODERATE MDD 10, #20 TAB Prov: SONG JUDGE 09/22/18 SONG JUDGE Sep 22, 2018 20:47
--- NOTE | 2018-09-22 20:50 | Diagnostic Imaging Report ---
EXAM: WRIST, RIGHT, 3 VIEWS OR MORE INDICATION: Fall on outstretched hand. COMPARISON: Right hand radiographs 03/31/2007. FINDINGS: Subtle linear lucency involving the medial and anterior cortex of the distal right radial metaphysis consistent with a nondisplaced fracture. No other fractures. Soft tissue shadows are unremarkable. IMPRESSION: Nondisplaced fracture involving the distal right radial metaphysis. Dictated by: Dictated on workstation # [id number]
[2018-09-22] MEDS ORDERED: ACHD5005 PO (20:57)
[2018-09-22 21:15] VITALS: BP 126/76
[2018-09-22] MEDS ORDERED: RX-HYDROCODONE/APAP 5/325 MG #4 TAB PK PO PRN (21:15)
== END 2018-09-22 21:16 | disposition home or self-care (01) ==
LOC: EDUNIT# 20:19 → ER 20:21
DX: S59.201A Unspecified physeal fracture of lower end of radius, right arm, initial encounter for closed fracture (principal); J45.909 Unspecified asthma, uncomplicated; Z88.0 Allergy status to penicillin; Z90.49 Acquired absence of other specified parts of digestive tract; W10.8XXA Fall (on) (from) other stairs and steps, initial encounter
CPT/HCPCS: 73110

== ENCOUNTER 2020-03-19 20:30 | Emergency (ER) | payer SELFPAY ==
[~2020-03-19] VITALS: Ht 165 cm; Wt 83.8 kg
[~2020-03-19 20:30] MED LIST changes: +ACHD5005 PO
[2020-03-19 20:34] VITALS: BP 134/88
[2020-03-19] MEDS ORDERED: RABIES IMMUNE GLOBULIN 300 UNIT/ML 5 ML (HyperRAB) IM ONE (21:00)
[2020-03-19] MEDS ORDERED: RABIES VACCINE HUMAN DIPL CELL 1 ML/2.5 UNITS SYR INJ ONE (21:00)
[2020-03-19] MEDS ORDERED: TETANUS,DIPTH,PERTUSS P/F (BOOSTRIX) 0.5 ML VIAL IM ONE (21:00)
[2020-03-19] MEDS ORDERED: DOXYCYCLINE 100 MG (VIBRAMYCIN) TABLET PO STA (21:16)
[2020-03-19] MEDS ORDERED: CLINDAMYCIN 150 MG (CLEOCIN) CAP PO STA (21:16)
--- NOTE | 2020-03-19 21:24 | ED Integumentary General ---
General Chief Complaint: Bite-Animal/Human/Insect Stated Complaint: FINGER INJ Nursing Triage Note: reports being bitten by bobcat kitten approx. 2000 on left finger. History of Present Illness Date Seen by Provider: Mar 19, 2020 Time Seen by Provider: 20:40 Initial Comments 24-year-old female reports she was driving down [address] she saw what she believed to be a kitten in the middle of the road. 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 She realized it was a baby terrence cat and it bit her left middle finger, leaving 2 puncture arredondo. No history of rabies vaccines, unsure of her last tetanus shot. Wound cleaned with soap and water, on arrival to ED. Timing/Duration: just prior to arrival Severity: mild Location: hands (left index finger) Possible Cause: other (animal bite) Associated Symptoms: denies symptoms Allergies and Home Medications Allergies Coded Allergies: amoxicillin (Verified Allergy, Intermediate, RASH, 11/17/13) Home Medications Clindamycin HCl 300 Mg Capsule, 300 MG PO TID Prescribed by: JESICA OLSEN on 03/19/202124 Doxycycline Hyclate 100 Mg Tablet, 100 MG PO BID Prescribed by: JESICA OLSEN on 03/19/202124 Patient Home Medication List Home Medication List Reviewed: Yes Review of Systems Review of Systems Constitutional: no symptoms reported, see HPI Skin: see HPI, other (puncture wounds to left middle finger) All Other Systems Reviewed Negative Unless Noted: Yes Past Pimrdoc-Jrxfeg-Dtbyxx Hx Past Med/Social Hx: Reviewed Nursing Past Med/Soc Hx Patient Social History Alcohol Use: Denies Use Recreational Drug Use: No Smoking Status: Never a Smoker 2nd Hand Smoke Exposure: No Recent Foreign Travel: No Contact w/Someone Who Travel: No Recent Infectious Disease Expo: No Recent Hopitalizations: No Physical Abuse: No Sexual Abuse: No Mistreated: No Fear: No Immunizations Up To Date Tetanus Booster (TDap): Unknown Date of Influenza Vaccine: Sep 06, 2014 Seasonal Allergies Seasonal Allergies: No Past Medical History Surgeries: Yes Appendectomy Respiratory: Yes (EXERCISE-INDUCED ASTHMA) Asthma Cardiac: No Neurological: No : No Reproductive Disorders: No Female Reproductive Disorders: Denies Sexually Transmitted Disease: No HIV/AIDS: No Genitourinary: No Gastrointestinal: No Musculoskeletal: No Endocrine: No HEENT: No Cancer: No Psychosocial: No Integumentary: No Blood Disorders: No Family Medical History No Pertinent Family Hx Physical Exam Vital Signs Vital Signs - First Documented 03/19/20 20:34 Temp 37.1 Pulse 97 Resp 20 B/P (MAP) 134/88 (103) Pulse Ox 98 O2 Delivery Room Air Capillary Refill : Less Than 3 Seconds General Appearance: WD/WN, no apparent distress Cardiovascular: normal peripheral pulses, regular rate, rhythm Respiratory: chest non-tender, lungs clear, normal breath sounds Extremities: normal range of motion, normal capillary refill, other (left middle finger with 2 small puncture wounds, no active drainage or erythema. Minimal soft tissue tenderness. Full range of motion at the MCP, PIP and DIP joints. No instability) Neurologic/Psychiatric: no motor/sensory deficits, alert, normal mood/affect, oriented x 3 Skin: normal color, warm/dry Progress/Results/Core Measures Results/Orders My Orders Orders - JESICA OLSEN Dipht,Pertuss(Acell),Tet Adult (Boostrix (03/19/20 21:00) Rabies Vaccine Human Dipl Cell (Rabavert (03/19/20 21:00) Rabies Immune Globulin/Pf Inj (Hyperrab (03/19/20 21:00) Doxycycline Hyclate Tablet (Vibramycin T (03/19/20 21:16) Clindamycin Capsule (Cleocin Capsule) (03/19/20 21:16) Medications Given in ED Current Medications Medications Dose Ordered Sig/Sharon Route Start Time Stop Time Status Last Admin Dose Admin Diphtheria/ Tetanus/Acell Pertussis 0.5 ml ONCE ONCE IM 03/19/20 21:00 03/19/20 21:01 DC 03/19/20 21:08 0.5 ML Rabies Immune Globulin 1,680 unit ONCE ONCE IM 03/19/20 21:00 03/19/20 21:01 DC 03/19/20 21:06 1,680 UNIT Rabies Vaccine Human Diploid Cell 1 ml ONCE ONCE INJ 03/19/20 21:00 03/19/20 21:01 DC 03/19/20 21:07 1 ML Vital Signs/I&O 03/19/20 20:34 Temp 37.1 Pulse 97 Resp 20 B/P (MAP) 134/88 (103) Pulse Ox 98 O2 Delivery Room Air Blood Pressure Mean: 103 Progress Progress Note : Time: 20:40 Progress Note Patient seen and evaluated, will give 1 mL IM of rabies vaccine in the right deltoid. 1,680 of Rabies IG inflitrated to left 3rd finger and remaining given IM left deltoid. Risks of infection, compartment syndrome, osteomyelitis and need for further treatment explained to patient. She will return for full series of additional 3 IM Rabies vaccine injections. Stressed importance of taking antibiotics as prescribed. Discharge instructions and return precautions reviewed with the patient. All questions answered. Departure Impression Primary Impression: Bite by animal Additional Impression: Need for rabies vaccination Disposition: HOME, SELF-CARE Condition: Improved Departure-Patient Inst. Decision time for Depature: 21:15 Referrals: [facility] (PCP/Family) Primary Care Physician Patient Instructions: Animal Bites (DC), Rabies (DC) Add. Discharge Instructions: Return to [facility] outpatient services for last 3 rabies shots. 03/22/20, 03/26/20 and 04/02/20. If you move away from this area, please arrange to get remaining shots. Watch for signs of infection: Redness, fever, discolored drainage, increased pain or swelling Wash area with soap and water 3-4 times daily. Take antibiotics, as prescribed. You may alternate between Tylenol 650 mg and ibuprofen 600 mg every 4 hours for pain. Follow-up with your primary care provider for symptoms or concerns. Return to the emergency department for new, urgent health care problems. All discharge instructions reviewed with patient and/or family. Voiced understanding. Scripts Clindamycin HCl (Clindamycin HCl) 300 Mg Capsule 300 MG PO TID, #21 CAP 0 Refills Prov: JESICA OLSEN 03/19/20 Doxycycline Hyclate (Doxycycline Hyclate) 100 Mg Tablet 100 MG PO BID, #14 TAB 0 Refills Prov: JESICA OLSEN 03/19/20 JESICA OLSEN Mar 19, 2020 21:24
[2020-03-19] MEDS ORDERED: CLIN300C11 PO (21:25)
[2020-03-19] MEDS ORDERED: DOXY100T2 PO (21:25)
== END 2020-03-19 21:27 | disposition home or self-care (01) ==
LOC: EDUNIT# 20:30 → ER 20:32
DX: S61.233A Puncture wound without foreign body of left middle finger without damage to nail, initial encounter (principal); Z20.3 Contact with and (suspected) exposure to rabies; Z88.0 Allergy status to penicillin; Z23 Encounter for immunization; W55.01XA Bitten by cat, initial encounter; Y92.410 Unspecified street and highway as the place of occurrence of the external cause
CPT/HCPCS: 90375; 90675; 90715; 99284

== ENCOUNTER 2020-04-02 14:44 | Outpatient (RCR) | payer SELFPAY ==
[2020-03-22] MEDS: RABIES VACCINE HUMAN DIPL CELL 1 ML/2.5 UNITS SYR ONE ×2 (12:53→12:55)
[2020-03-22 12:56] VITALS: BP 113/60
[2020-03-26 10:45] VITALS: BP 115/81
--- NOTE | 2020-03-26 10:55 | NUR ---
PATIENT AND SO ASKED IF RABIES VACCINE WOULD BE A PROBLEM IS SHE WAS , STATES HAVE NOT TESTED YET BUT IS NOT TRYING NOT TO GET .. THIS RN PHONED DINA TONG AND HE INFORMED SHOWS NO HARM TO FETUS. THIS RN INFORMED PATIENT AND SO AND PROCEEDED WITH VACCINE.
[~2020-04-02] VITALS: Ht 165.1 cm; Wt 83.8 kg
[2020-04-02 14:44] VITALS: BP 116/73
[~2020-04-02 14:44] MED LIST changes: +CLIN300C11 PO; +DOXY100T2 PO; +RABIES VACCINE HUMAN DIPL CELL 1 ML/2.5 UNITS SYR INJ ONE
== END 2020-04-02 14:52 | disposition home or self-care (01) ==
LOC: SDC 14:44
PROVIDERS: ATTEND Nurse Practitioner
DX: S61.253A Open bite of left middle finger without damage to nail, initial encounter (principal); W64.XXXA Exposure to other animate mechanical forces, initial encounter; Z88.1 Allergy status to other antibiotic agents; Z23 Encounter for immunization
CPT/HCPCS: 90471; 90675; 96372